=== PATIENT | male | born 1990 | race Caucasian/White ===

== ENCOUNTER 2018-03-15 16:11 | Emergency (ER) | payer OTHER ==
[2018-03-15 16:39] VITALS: BP 130/83; PULSE 75; RESP 18; TEMP 98.8
[2018-03-15] MEDS ORDERED: methylPREDNISolone SOD SUCCI 125 MG/2 ML VIAL IM ONE (16:58)
--- NOTE | 2018-03-15 16:58 | ED ---
General Adult HPI - General Chief complaint: Skin/Abscess/Foreign Body Stated complaint: Rash on hands Time Seen by Provider: 03/15/18 16:45 Source: patient, RN notes reviewed Mode of arrival: ambulatory Limitations: no limitations - History of Present Illness Initial comments: 27-year-old male presents to the emergency department for a chief complaint of rash 3 days. Patient states he noticed the rash first on the back of his hands and it has since spread. Patient states the rash is on his trunk and arms and legs. Patient denies rash being on the palms or soles of the hands or feet or face. Patient denies changing any detergents or medicines. Patient has not started any new medications or jobs. Patient states this started after he washed his car with some chemicals. Patient states it is itchy. Patient denies swelling of the lips tongue or throat. Patient denies any previous anaphylactic reactions. Patient denies any shortness of breath or difficulty breathing. No fevers or chills at home. No recent travel. No concerns for STDs. Has not taken anything for the rash. Patient denies any recent cough congestion or sore throat. Patient has no other complaints at this time including shortness of breath, chest pain, abdominal pain, nausea or vomiting, headache, or visual changes. - Related Data Previous Rx's Medication Instructions Recorded Loratadine [Claritin] 10 mg PO DAILY #20 tab 03/15/18 Mupirocin [Mupirocin 2%] 1 applic TOPICAL Q8H 5 Days gm 03/15/18 diphenhydrAMINE [Benadryl] 50 mg PO Q6H PRN #20 capsule 03/15/18 predniSONE 50 mg PO DAILY #5 tablet 03/15/18 Allergies Allergy/AdvReac Type Severity Reaction Status Date / Time No Known Allergies Allergy Verified 03/15/18 16:39 Review of Systems ROS Statement: Those systems with pertinent positive or pertinent negative responses have been documented in the HPI. ROS Other: All systems not noted in ROS Statement are negative. Past Medical History Past Medical History: No Reported History History of Any Multi-Drug Resistant Organisms: None Reported Past Surgical History: No Surgical Hx Reported Past Psychological History: No Psychological Hx Reported Smoking Status: Never smoker Past Alcohol Use History: Occasional Past Drug Use History: Marijuana General Exam Limitations: no limitations General appearance: alert, in no apparent distress Head exam: Present: atraumatic, normocephalic, normal inspection Eye exam: Present: normal appearance, PERRL, EOMI. Absent: scleral icterus, conjunctival injection, periorbital swelling ENT exam: Present: normal exam, normal oropharynx (Patent, uvula midline, no tonsillar exudates noted bilaterally), mucous membranes moist, TM's normal bilaterally, normal external ear exam Neck exam: Present: normal inspection, full ROM. Absent: tenderness, meningismus, lymphadenopathy Respiratory exam: Present: normal lung sounds bilaterally. Absent: respiratory distress, wheezes, rales, rhonchi, stridor Cardiovascular Exam: Present: regular rate, normal rhythm, normal heart sounds. Absent: systolic murmur, diastolic murmur, rubs, gallop, clicks Skin exam: Present: rash (Patient has a generalized pruritic rash consisting of small raised lesions. No excoriations noted. Appears to be a dermatitis. Dorsal ankles are excoriated. No signs of cellulitic infection, abscess, or drainage at this time.) Course Vital Signs 03/15/18 16:37 Temperature 98.8 F Pulse Rate 75 Respiratory 18 Rate Blood Pressure 130/83 O2 Sat by Pulse 99 Oximetry Medical Decision Making - Medical Decision Making 27-year-old male presents to the emergency department for a generalized pruritic rash 3 days. Patient has not taken anything for it. Patient states the rash started after he was washing his truck outside. Patient states he noticed the rash on the dorsal hands and his continued to spread. Patient denies rash on palms, soles, or face. Patient denies fevers or chills at home. Patient denies any other symptoms associated with the rash. No swelling of the lips, tongue, throat or shortness of breath/difficulty breathing. On exam there are small erythematous lesions generalized. Dorsal ankles are excoriated but no signs of cellulitic infection or drainage. Patient likely is experiencing a dermatitis or allergic reaction. Patient was given a shot of steroids in the emergency department as well as Benadryl. He will continue with steroid regimen for the next 5 days. Patient will take Claritin once during the day and Benadryl once before he goes to bed. He will apply mupirocin ointment to the ankles to prevent any infection. He will follow up with dermatology in 1-2 days. He will return to the emergency department if symptoms worsen or do not resolve. Disposition Clinical Impression: Rash Disposition: HOME SELF-CARE Condition: Good Instructions: Acute Rash (ED) Additional Instructions: Please take steroid as directed. Please take one Claritin in the morning and one dose of Benadryl at night until rash resolves. Please apply antibiotic ointment to the areas of the ankles for 5 days to prevent infection as directed. Follow up with dermatology or primary care in 1-2 days. Return to the emergency department if you have any worsening symptoms or fever. Prescriptions: diphenhydrAMINE [Benadryl] 50 mg PO Q6H PRN #20 capsule PRN Reason: Rash Loratadine [Claritin] 10 mg PO DAILY #20 tab Mupirocin [Mupirocin 2%] 1 applic TOPICAL Q8H 5 Days gm predniSONE 50 mg PO DAILY #5 tablet Is patient prescribed a controlled substance at d/c from ED?: No Referrals: Dayna Veras MD [STAFF PHYSICIAN] - 1-2 days Time of Disposition: 17:04
[2018-03-15] MEDS ORDERED: diphenhydrAMINE 50 MG CAP PO STA (16:59)
== END 2018-03-15 17:21 | disposition home or self-care (01) ==
LOC: EC 16:11
DX: R21 Rash and other nonspecific skin eruption (principal)
CPT/HCPCS: 99282; 96372; J2930